=== PATIENT | male | born 1965 | race Caucasian/White ===

== ENCOUNTER 2023-05-16 06:30 | Emergency (ER) | payer BC ==
[~2023-05-16] VITALS: Ht 162.6 cm; Wt 81.6 kg
[2023-05-16 06:40] VITALS: BP 148/86; PULSE 87; RESP 18; TEMP 98.3; O2SAT 99
[2023-05-16] MEDS: KETOROLAC 60 MG/2 ML VIAL IM ONE (07:03)
[2023-05-16] MEDS: LIDOCAINE 5% 1 EA PATCH TP ONE (07:06)
[2023-05-16 07:10] VITALS: O2SAT 99
[2023-05-16] MEDS ORDERED: CYCL-711 PO (07:11)
[2023-05-16] MEDS ORDERED: DICL20GE TP (07:11)
[2023-05-16] MEDS ORDERED: CALC355O5 PO (07:11)
[2023-05-16] MEDS ORDERED: FAMO-90 PO (07:11)
== END 2023-05-16 07:37 | disposition home or self-care (01) ==
LOC: MED 06:30
DX: S39.012A Strain of muscle, fascia and tendon of lower back, initial encounter (principal); M51.36 Other intervertebral disc degeneration, lumbar region; K21.9 Gastro-esophageal reflux disease without esophagitis; Z79.899 Other long term (current) drug therapy; X58.XXXA Exposure to other specified factors, initial encounter; Y93.89 Activity, other specified; Y92.89 Other specified places as the place of occurrence of the external cause; Y99.8 Other external cause status
CPT/HCPCS: 72110; 96372; 99283; J1885